=== PATIENT | female | born 1980 | race African-American/Black ===

== ENCOUNTER 2020-03-13 17:27 | Emergency (ER) | payer OTHER ==
[~2020-03-13] VITALS: Ht 160 cm; Wt 47.2 kg
== END 2020-03-13 20:57 | disposition home or self-care (01) ==
LOC: ER 17:27
DX: E86.0 Dehydration (principal); N39.0 Urinary tract infection, site not specified; Z03.818 Encounter for observation for suspected exposure to other biological agents ruled out; R10.84 Generalized abdominal pain; R19.7 Diarrhea, unspecified

== ENCOUNTER 2020-04-04 09:03 | Outpatient (CLI) | payer OTHER | END 2020-04-04 09:14 | disposition home or self-care (01) | LOC: RAD 09:03 | PROVIDERS: ATTEND Family Medicine | DX: M79.641 Pain in right hand (principal) ==

== ENCOUNTER 2020-04-09 14:25 | Outpatient (CLI) | payer OTHER | END 2020-04-09 14:37 | disposition home or self-care (01) | LOC: SONOGRAMA 14:25 | PROVIDERS: ATTEND Family Medicine | DX: M79.641 Pain in right hand (principal); M79.644 Pain in right finger(s) ==

== ENCOUNTER → 2020-08-14 | Outpatient (CLI) | payer OTHER | END | disposition home or self-care (01) | LOC: MAMO-SONO 12:15 | PROVIDERS: ATTEND Specialist | DX: N60.02 Solitary cyst of left breast (principal); N83.291 Other ovarian cyst, right side; Z12.31 Encounter for screening mammogram for malignant neoplasm of breast; N83.292 Other ovarian cyst, left side; N64.59 Other signs and symptoms in breast ==

== ENCOUNTER 2020-09-04 12:02 | Outpatient (CLI) | payer OTHER | END 2020-09-04 12:16 | disposition home or self-care (01) | LOC: RAD 12:02 | DX: M62.838 Other muscle spasm (principal); M54.2 Cervicalgia; M54.5 Low back pain; M54.6 Pain in thoracic spine ==

== ENCOUNTER 2023-03-09 16:36 | Emergency (ER) | payer OTHER ==
[~2023-03-09] VITALS: Ht 160 cm; Wt 45.4 kg
== END 2023-03-09 23:31 | disposition home or self-care (01) ==
LOC: ER 16:36
DX: L03.114 Cellulitis of left upper limb (principal); W55.01XA Bitten by cat, initial encounter; Y93.89 Activity, other specified; Y92.89 Other specified places as the place of occurrence of the external cause; Z91.018 Allergy to other foods

== ENCOUNTER 2023-08-05 14:56 | Outpatient (CLI) | payer OTHER | END 2023-08-05 14:57 | disposition home or self-care (01) | LOC: PRENATAL 14:56 | PROVIDERS: ATTEND Obstetrics & Gynecology Maternal & Fetal Medicine | DX: O35.3XX0 Maternal care for (suspected) damage to fetus from viral disease in mother, not applicable or unspecified (principal); O44.00 Complete placenta previa NOS or without hemorrhage, unspecified trimester; O09.529 Supervision of elderly multigravida, unspecified trimester; O98.919 Unspecified maternal infectious and parasitic disease complicating pregnancy, unspecified trimester; O34.40 Maternal care for other abnormalities of cervix, unspecified trimester; Z3A.21 21 weeks gestation of pregnancy ==

== ENCOUNTER 2023-09-07 14:19 | Outpatient (CLI) | payer OTHER | END 2023-09-07 14:20 | disposition home or self-care (01) | LOC: PRENATAL 14:19 | PROVIDERS: ATTEND Obstetrics & Gynecology Maternal & Fetal Medicine | DX: O26.849 Uterine size-date discrepancy, unspecified trimester (principal); O09.529 Supervision of elderly multigravida, unspecified trimester; O98.919 Unspecified maternal infectious and parasitic disease complicating pregnancy, unspecified trimester; O34.40 Maternal care for other abnormalities of cervix, unspecified trimester; O26.859 Spotting complicating pregnancy, unspecified trimester; Z3A.26 26 weeks gestation of pregnancy ==

== ENCOUNTER 2023-10-18 09:08 | Outpatient (CLI) | payer OTHER | END 2023-10-18 09:10 | disposition home or self-care (01) | LOC: PRENATAL 09:08 | PROVIDERS: ATTEND Obstetrics & Gynecology Maternal & Fetal Medicine | DX: O26.849 Uterine size-date discrepancy, unspecified trimester (principal); O36.8199 Decreased fetal movements, unspecified trimester, other fetus; O09.529 Supervision of elderly multigravida, unspecified trimester; O98.919 Unspecified maternal infectious and parasitic disease complicating pregnancy, unspecified trimester; O99.019 Anemia complicating pregnancy, unspecified trimester; Z3A.32 32 weeks gestation of pregnancy ==

== ENCOUNTER 2023-10-20 09:09 | Outpatient (CLI) | payer OTHER | END 2023-10-20 09:11 | disposition home or self-care (01) | LOC: PRENATAL 09:09 | PROVIDERS: ATTEND Obstetrics & Gynecology Maternal & Fetal Medicine | DX: Z76.1 Encounter for health supervision and care of foundling (principal) ==